=== PATIENT | female | born 1985 | race Caucasian/White ===

== ENCOUNTER → 2022-10-22 | Outpatient (CLI) | payer OTHER | LOC: MC.RAD 08:00 | DX: N63.20 Unspecified lump in the left breast, unspecified quadrant (principal) ==

== ENCOUNTER 2023-09-06 07:44 | Emergency (ER) | payer OTHER ==
[~2023-09-06] VITALS: Ht 165.1 cm; Wt 59.1 kg
[2023-09-06 07:55] VITALS: TEMP 97
[2023-09-06] MEDS ORDERED: EPIPEN 2-PAK1 MG/ML IM (08:53)
[2023-09-06] MEDS ORDERED: PREDNISONE50 MG PO (08:53)
[2023-09-06 08:54] VITALS: BP 116/84; PULSE 108
== END 2023-09-06 09:15 | disposition home or self-care (01) ==
LOC: COL.ER 07:44
DX: T78.40XA Allergy, unspecified, initial encounter (principal); Z88.2 Allergy status to sulfonamides
CPT/HCPCS: J1200; J7512